=== PATIENT | male | born 1985 ===

== ENCOUNTER 2019-05-11 06:59 | Inpatient (IN) | payer OTHER ==
[~2019-05-11] VITALS: Ht 180.3 cm; Wt 95.3 kg
[~2019-05-11 06:59] MED LIST: Acetaminophen (Non formulary) 100 ML IV ONE; Atropine Sulfate 0.4mg/ml inj IVP PRN; Bacitracin 50000 Units Vial ONE; DiphenhydrAMINE 50mg/ml Inj IVP PRN; Gelfoam Size TOPIC ONE; HYDROcodone/Acetamin 5/325 tab ORAL PRN; HYDROcodone/Acetamin 7.5/325 tab ORAL PRN; Heparin 5000 units/ml inj ONE; Hydromorphone 0.5mg/0.5ml inj IVP PRN; Ketorolac 30mg Inj IV PRN; LORazepam Inj 2mg/ml 1ml IV PRN; LR 1000ml 1,000 ML IVLG SCH; Labetalol 5mg/ml 20ml vial IV PRN; Lidocaine 1% MPF 10mg/ml 5ml ONE; Lidocaine 1% Plain 30 ml INJ ONE; Meperidine 50mg/ml Inj(FOR RIGORS ONLY) IVP PRN; Metoclopramide 10mg/2ml Inj IVP PRN; Midazolam 2mg/2ml Inj IVP PRN; Ropivacaine 5mg/ml Vial 30ml INJ ONE; Sodium Chloride 10ml vial INJ ONE; Thrombin 5000 units TOPIC ONE; Zemuron 50mg/5ml Inj IV ONE; fentaNYL 100 mcg/2 mL IV ONE; fentaNYL 100 mcg/2 mL IV PRN; oxyCODONE HCL/Acetaminophen 5/325mg ORAL PRN
[2019-05-11] MEDS ORDERED: Dexamethasone 20mg/5ml IVP ONE (07:00)
[2019-05-11] MEDS ORDERED: ceFAZolin sod 1 GM in NS 55 ML IVPB ONE (07:00)
[2019-05-11] MEDS ORDERED: Dexamethasone 4mg/ml vial ONE (07:24)
[2019-05-11] MEDS ORDERED: Dexamethasone 20mg/5ml ONE (07:24)
[2019-05-11 07:29] VITALS: BP 149/94
--- NOTE | 2019-05-11 07:38 | Pre-Procedure Note/Attestation ---
Pre-Procedure Note/Attestation Complete Prior to Procedure Planned Procedure: not applicable Procedure Narrative: L5 S1 ALIF anterior internal fixation Indications for Procedure Pre-Operative Diagnosis: Post trauma clinical instability Attestation I attest that I discussed the nature of the procedure; its benefits; risks and complications; and alternatives (and the risks and benefits of such alternatives ), prior to the procedure, with the patient (or the patient's legal sales representative groceries). I attest that, if there was a reasonable possibility of needing a blood transfusion, the patient (or the patient's legal sales representative groceries) was given the [facility] standardized written summary, pursuant to the [place] Blood Safety Act ([place] Health and Safety Code # 1645, as amended). I attest that I re-evaluated the patient just prior to the surgery and that there has been no change in the patient's H&P, except as documented below: Angel Lock MD May 11, 2019 07:38
[2019-05-11] MEDS ORDERED: GABAPENTIN300 MG ORAL (07:39)
[2019-05-11] MEDS ORDERED: NORCO 10-325 T1 EACH ORAL (07:39)
--- NOTE | 2019-05-11 07:44 | Anethesia Preoperative Eval ---
Anesthesia Pre-op PMH/ROS General Date of Evaluation: May 11, 2019 Anesthesiologist: Sarthak ASA Score: ASA 2 Mallampati Score Class I : Soft palate, uvula, fauces, pillars visible Class II: Soft palate, uvula, fauces visible Class III: Soft palate, base of uvula visible Class IV: Only hard plate visible Mallampati Classification: Class II Surgeon: Ashvin Diagnosis: Back Pain Surgical Procedure: ALIF L5-S1 Anesthesia History: none Social History: current smoker Family History: no anesthesia problems Allergies: Coded Allergies: No Known Allergies (Unverified , 05/11/19) Medications: see eMAR Patient NPO?: Yes NPO Date: May 10, 2019 NPO Time: 1999 Past Medical History Cardiovascular: Reports: HTN Pulmonary: Reports: other - Smoker Other: obesity - BMI 31 Anesthesia Pre-op Phys. Exam Physician Exam Last Vital Signs Date Time Temp Pulse Resp B/P (MAP) Pulse Ox O2 Delivery O2 Flow Rate FiO2 05/11/19 07:29 97.3 83 18 149/94 (112) 99 05/11/19 07:22 Room Air Constitutional: NAD Neurologic: CN 2-12 intact Cardiovascular: RRR Respiratory: CTA Gastrointestinal: S/NT/ND Airway Exam Mallampati Score: Class II MO: full ROM: full Teeth: intact Anesthesia Pre-op A/P Risk Assessment & Plan Assessment: ASA 2 Plan: GA, SED, GlideScope Go Status Change Before Surgery: No Pre-Antibiotics Dru Grams Ancef IV Given Within 1 Hr of Incision: Yes Travis De León MD May 11, 2019 07:44
--- NOTE | 2019-05-11 07:44 | Immediate Post-Op Evaluation ---
Immediate Post-Op Evalulation Immediate Post-Op Evalulation Procedure: ALIF L5-S1 Date of Evaluation: May 11, 2019 Blood Products: 0 Pain Score (1-10): 2 Nausea: No Vomiting: No Complications 0 Patient Status: awake, reacts, patent, extubated, none Hydration Status: adequate Dru grams Ancef IV Given Within 1 Hr of Incision: Yes Travis De León MD May 11, 2019 07:44
[2019-05-15] VITALS (9 sets, daily range): BP systolic 115–143; BP diastolic 56–89
[2019-05-15] MEDS ORDERED: Heparin 5000 units/ml inj ONE (06:21)
[2019-05-15] MEDS ORDERED: Thrombin 5000 units TOPIC ONE (06:21)
[2019-05-15] MEDS ORDERED: Gelfoam Size TOPIC ONE (06:22)
[2019-05-15] MEDS ORDERED: Bacitracin 50000 Units Vial ONE (06:22)
[2019-05-15] MEDS ORDERED: Ropivacaine 5mg/ml Vial 30ml INJ ONE (06:22)
[2019-05-15] MEDS ORDERED: Zemuron 50mg/5ml Inj IV ONE (06:28)
[2019-05-15] MEDS ORDERED: LR 1000ml 1,000 ML IVLG SCH (06:36)
--- NOTE | 2019-05-15 06:37 | Anethesia Preoperative Eval ---
Anesthesia Pre-op PMH/ROS General Date of Evaluation: May 15, 2019 Time of Evaluation: 06:49 Anesthesiologist: Sarthak ASA Score: ASA 2 Mallampati Score Class I : Soft palate, uvula, fauces, pillars visible Class II: Soft palate, uvula, fauces visible Class III: Soft palate, base of uvula visible Class IV: Only hard plate visible Mallampati Classification: Class II Surgeon: Ashvin Diagnosis: Back Pain Surgical Procedure: ALIF L5-S1 Anesthesia History: none Social History: current smoker Family History: no anesthesia problems Allergies: Coded Allergies: No Known Allergies (Unverified , 05/11/19) Medications: see eMAR Patient NPO?: Yes NPO Date: May 14, 2019 NPO Time: 1999 Past Medical History Cardiovascular: Reports: HTN Other: obesity - BMI 31 PSxH Narrative: Testicular SX Anesthesia Pre-op Phys. Exam Physician Exam Last Vital Signs Date Time Temp Pulse Resp B/P (MAP) Pulse Ox O2 Delivery O2 Flow Rate FiO2 05/15/19 05:40 Room Air 05/11/19 07:29 97.3 83 18 149/94 (112) 99 Constitutional: NAD Neurologic: CN 2-12 intact Cardiovascular: RRR Respiratory: CTA Gastrointestinal: S/NT/ND Airway Exam Mallampati Score: Class II MO: full ROM: full Teeth: intact Anesthesia Pre-op A/P Risk Assessment & Plan Assessment: ASA 2 Plan: GA, SED, GlideScope Go Status Change Before Surgery: Yes Pre-Antibiotics Dru Grams Ancef IV Given Within 1 Hr of Incision: Yes Time Given: 07:06 Travis De León MD May 15, 2019 06:37
--- NOTE | 2019-05-15 06:39 | Pre-Procedure Note/Attestation ---
Pre-Procedure Note/Attestation Complete Prior to Procedure Planned Procedure: not applicable Procedure Narrative: ALIF L5-S1. Anterior internal plate fixation L5, S1. Indications for Procedure Pre-Operative Diagnosis: Post trauma clinical instability Attestation I attest that I discussed the nature of the procedure; its benefits; risks and complications; and alternatives (and the risks and benefits of such alternatives ), prior to the procedure, with the patient (or the patient's legal client relations representative). I attest that, if there was a reasonable possibility of needing a blood transfusion, the patient (or the patient's legal client relations representative) was given the [place] [facility] standardized written summary, pursuant to the [place] Blood Safety Act ([place] Health and Safety Code # 1645, as amended). I attest that I re-evaluated the patient just prior to the surgery and that there has been no change in the patient's H&P, except as documented below: Angel Lock MD May 15, 2019 06:39
[2019-05-15] MEDS ORDERED: Lidocaine 1% MPF 10mg/ml 5ml ONE (06:40)
[2019-05-15] MEDS ORDERED: Sodium Chloride 10ml vial INJ ONE (06:40)
[2019-05-15] MEDS ORDERED: Dexamethasone 4mg/ml vial ONE (06:40)
[2019-05-15] MEDS ORDERED: oxyCODONE HCL/Acetaminophen 5/325mg ORAL PRN (06:45)
[2019-05-15] MEDS ORDERED: Atropine Sulfate 0.4mg/ml inj IVP PRN (06:45)
[2019-05-15] MEDS ORDERED: Metoclopramide 10mg/2ml Inj IVP PRN (06:45)
[2019-05-15] MEDS ORDERED: DiphenhydrAMINE 50mg/ml Inj IVP PRN (06:45)
[2019-05-15] MEDS ORDERED: Midazolam 2mg/2ml Inj IVP PRN (06:45)
[2019-05-15] MEDS ORDERED: Labetalol 5mg/ml 20ml vial IV PRN (06:45)
[2019-05-15] MEDS ORDERED: Acetaminophen (Non formulary) 100 ML IV ONE (06:45)
[2019-05-15] MEDS ORDERED: HYDROcodone/Acetamin 7.5/325 tab ORAL PRN (06:45)
[2019-05-15] MEDS ORDERED: fentaNYL 100 mcg/2 mL IV PRN (06:45)
[2019-05-15] MEDS ORDERED: LORazepam Inj 2mg/ml 1ml IV PRN (06:45)
[2019-05-15] MEDS ORDERED: Hydromorphone 0.5mg/0.5ml inj IVP PRN (06:45)
[2019-05-15] MEDS ORDERED: Meperidine 50mg/ml Inj(FOR RIGORS ONLY) IVP PRN (06:45)
[2019-05-15] MEDS ORDERED: Ketorolac 30mg Inj IV PRN ×2 (06:45)
[2019-05-15] MEDS ORDERED: HYDROcodone/Acetamin 5/325 tab ORAL PRN (06:45)
[2019-05-15] MEDS ORDERED: Lidocaine 1% Plain 30 ml INJ ONE (06:48)
[2019-05-15] MEDS ORDERED: Propofol 1,000mg/ 100ml btl IV ONE (07:00)
[2019-05-15] MEDS ORDERED: Sterile Water Irrig 1000ml IRRIG ONE (07:00)
[2019-05-15] MEDS ORDERED: ceFAZolin sod 1 GM in NS 55 ML IVPB ONE (07:00)
[2019-05-15] MEDS ORDERED: LR 1000ml ONE (07:00)
[2019-05-15] MEDS ORDERED: NS Irrig 1000ml ONE (07:00)
[2019-05-15] MEDS ORDERED: Dexamethasone 20mg/5ml IVP ONE (07:00)
[2019-05-15] MEDS ORDERED: LORazepam 1mg tab ORAL PRN (07:15)
[2019-05-15] MEDS ORDERED: Chloraseptic Spray 20mL Bottle ORAL PRN (07:15)
[2019-05-15] MEDS ORDERED: HYDROmorphone 1mg/ml Carpuject SUBQ PRN (07:15)
--- NOTE | 2019-05-15 07:25 | Immediate Post-Op Evaluation ---
Immediate Post-Op Evalulation Immediate Post-Op Evalulation Procedure: ALIF L5-S1 Date of Evaluation: May 15, 2019 Time of Evaluation: 09:09 IV Fluids: 1000 LR Blood Products: 0 Estimated Blood Loss: 25 Urinary Output: 0 Blood Pressure Systolic: 118 Blood Pressure Diastolic: 73 Pulse Rate: 84 Respiratory Rate: 16 O2 Sat by Pulse Oximetry: 100 Temperature (Fahrenheit): 97.2 Pain Score (1-10): 3 Nausea: No Vomiting: No Complications 0 Patient Status: awake, reacts, patent, extubated, none Hydration Status: adequate Dru Grams Ancef IV Given Within 1 Hr of Incision: Yes Time Given: 07:06 Travis De León MD May 15, 2019 07:25
--- NOTE | 2019-05-15 07:37 | 48 Hour Post Anesthesia Eval ---
Post Anesthesia Evaluation Procedure: ALIF L5-S1 Date of Evaluation: May 15, 2019 Time of Evaluation: 11:23 Blood Pressure Systolic: 134 0: 72 Pulse Rate: 73 Respiratory Rate: 18 Temperature (Fahrenheit): 98.2 O2 Sat by Pulse Oximetry: 98 Airway: patent Nausea: No Vomiting: No Pain Intensity: 3 Hydration Status: adequate Cardiopulmonary Status: Stable Mental Status/LOC: patient returned to baseline Follow-up Care/Observations: 0 Post-Anesthesia Complications: 0 Follow-up care needed: N/A Travis De León MD May 15, 2019 07:37
[2019-05-15] MEDS ORDERED: D5 1/2NS 1,000 ML IV SCH (08:34)
--- NOTE | 2019-05-15 08:34 | Brief Operative Note ---
Immediate Post Operative Note Operative Note Pre-op Diagnosis: Post trauma clinical instability Procedure: ALIF L5-S1 Anterior Plate L5, S1 Post-op Diagnosis: same as pre-op Findings: consistent w/pre-op dx studies Surgeon: Ashvin Ph.D., M.D. Additional Surgeons: Daniel MICHELE Anesthesiologist: Sarthak MICHELE Anesthesia: general Specimen: yes Complications: none Condition: stable Fluids: anesthesia Estimated Blood Loss: minimal Drains: none Implant(s) used?: Yes Angel Lock MD May 15, 2019 08:34
--- NOTE | 2019-05-15 10:12 | NUR ---
NURSE NOTES: Patient arrived on unit via hospital bed. Stable. AOx4. Denies pain or SOB at this time. Surgical dressing is clean, dry, and intact. Patient oriented to room, unit, and call light. Patient encouraged to use call light for assistance, verbalized understanding. Patient in bed in locked and lowest position with call light within reach. Will continue to monitor.
[2019-05-15] MEDS ORDERED: Tamsulosin 0.4mg cap ORAL SCH (10:30)
--- NOTE | 2019-05-15 10:30 | Operative Note - Dictated ---
DATE OF OPERATION: 05/15/2019 SURGEON: Angel Lock PhD. M.D. ADDITIONAL SURGEON: Vascular Surgery, Dr. Sanchez. ANESTHESIA: Dr. De León, general with intubation. ESTIMATED BLOOD LOSS: Less than 50 mL. COMPLICATIONS: None. POSTOPERATIVE CONDITION: Good/stable. FLUIDS: Per anesthesia. PREOPEARTIVE DIAGNOSIS: Posttraumatic L5-S1 pain. POSTOPERATIVE DIAGNOSIS: Posttraumatic L5-S1 pain. OPERATIVE PROCEDURES: 1. Anterior L5-S1 lumbar interbody fusion, implantation of biomechanical device containing bio-active material. 2. Anterior internal plate fixation. 3. SSEP/EMG monitoring. 4. High-powered magnification dissection. Please see separate report Dr. Sanchez, for anterior exposure and closure. Identification under sterile techniques with a spinal needle placed midline in the L5-S1 disc was undertaken with fluoroscopic guidance in the AP and lateral planes. Position marked. Needle removed. Wound irrigated with antibiotic-containing saline. Annulotomy followed with diskectomy posterior longitudinal ligament. Denuding of the cartilaginous endplates from the inferior L5 and superior S1 vertebral bodies. SSEP/EMG monitoring normal at all times. Trial utilization for determination of the correct implant. After termination with fluoroscopic guidance, implant was appropriately packed with bio-active material, implant tamped into position under direct observation. Fluoroscopic guidance demonstrated the correct alignment and positioning. Internal flange system deployed per manufacture's criteria FDA approved. Anterior internal plate fixation with 28 mm screws in a compressive divergent manner with screws locked into position. Excellent alignment in AP and lateral planes. All monitoring stable. Wound irrigated with antibiotic-containing saline. Please see closure, Dr. Sanchez. Angel Lock M.D. DR: ZULY JOB#: [id number] CC:
[2019-05-15] MEDS: Morphine Sulfate 4mg/ml Inj (IV USE ONLY) IVP PRN ×3 (11:40→18:15)
[2019-05-15] MEDS: D5 1/2NS 1,000 ML IV SCH ×2 (11:46→19:20)
[2019-05-15] MEDS ORDERED: Naloxone 0.4mg/ml Inj IVP PRN (12:00)
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
--- NOTE | 2019-05-15 12:19 | Diagnostic Imaging Report ---
INDICATION: Pain, intraoperative TECHNIQUE: Intraoperative imaging Fluoroscopy time: 9.9 seconds Total dose: [id number] mGym2 Total number of images: 3 COMPARISON: None FINDINGS: Intraoperative images demonstrate surgical tool projected at the anterior aspect of what is presumably the L5-S1 disc. Subsequent images demonstrate anterior fusion hardware placement at L5-S1 IMPRESSION: Intraoperative imaging, as described
--- NOTE | 2019-05-15 12:30 | Operative Note - Dictated ---
DATE OF OPERATION: 05/15/2019 VASCULAR SURGEON: Rasta Sanchez M.D. SPINE SURGEON: Angel Lock M.D. PREOPERATIVE DIAGNOSIS: Lumbar pain. POSTOPERATIVE DIAGNOSIS: Lumbar pain. PROCEDURE: Anterior retroperitoneal exposure of L5-S1 vertebral interspace, right retroperitoneal approach. INDICATIONS: This is a very pleasant gentleman, who is seen in my office prior to surgery. He was scheduled for anterior spine surgery L5-S1. He had no prior anterior spine surgery. No history of deep venous thrombosis or bleeding complications were described. He has been made aware of the risks of vascular surgery. Positive vascular injury with need for blood transfusion, deep venous thrombosis were all discussed. DESCRIPTION OF FINDINGS: A low vertical midline incision was used. The right retroperitoneal approach was used. There was no peritoneal or ureteral violation. There was no vascular injury. BLOOD LOSS: Less than 50 mL. COMPLICATIONS: None. DESCRIPTION OF PROCEDURE: The patient was taken to the operating room. General anesthesia was used. IV antibiotics were given. The patient's abdomen was prepped and draped. Appropriate time-out for procedure taken. A low vertical midline incision was made infraumbilically. The anterior fascia was incised longitudinally in the midline. A plane was identified posterior to the right rectus abdominis developed posterolaterally to the patient's right. The retroperitoneal space was entered below the arcuate line. The peritoneum and ureter were mobilized towards the patient's left exposing the right common iliac artery and vein. Dissection was carried superiorly along the medial border of the right common iliac artery and vein. The anterior surface of L5-S1 was palpated. The peritoneum and ureter were mobilized towards the patient's left exposing the anterior surface of L5-S1. The Omni retractor blade was set in place. Fluoroscopy was then used to confirm the appropriate level. An instrumentation was performed at L5-S1 dictated separately. On completion, the retractors were removed. The peritoneum and ureter were intact. Iliac vessels were intact. Anterior fascia was closed using #1 PDS in a running fashion and the skin and subcutaneous tissue were closed with 3-0 Vicryl and 4-0 Monocryl running subcuticular closure technique. Estimated blood loss less than 50 mL. Complications were none. Rasta Sanchez M.D. DR: MOISÉS JOB#: [id number] CC: Ted Cruz M.D. ; FAX#: [phone]
[2019-05-15] MEDS: ceFAZolin sod 1 GM in D5W 55 ML IV SCH ×2 (15:58→23:37)
--- NOTE | 2019-05-15 16:43 | NUR ---
CASE MANAGEMENT:REVIEW 33 YR OLD MALE HERE FOR ELECTIVE SURGERY SI: LUMBAR PAIN 97.3 83 18 149/94 99% ON RA IS: TO SURGERY FOR: Anterior retroperitoneal exposure of L5-S1 vertebral interspace, right retroperitoneal approach. IV ANCEF Q8HRS IVF@150/HR MARINOL PO Q12 IV MORPHINE Q3HRS PRN : TO MED/SURG 3 EAST INTERQUAL CRITERIA MET
--- NOTE | 2019-05-15 17:00 | NUR ---
NURSE NOTES: Patient passed gas. Dr Chavez aware, will continue to monitor.
[2019-05-15] MEDS: Dronabinol 2.5mg Cap ORAL SCH (18:15)
--- NOTE | 2019-05-15 18:30 | NUR ---
NURSE NOTES: Dr. Chavez made aware that patient c/o pain in right leg, no new orders at this time. Will continue to monitor.
--- NOTE | 2019-05-15 18:40 | Cardiology Progress Note ---
Assessment/Plan Assessment/Plan [id number] note dicated Objective Last 24 Hour Vital Signs Date Time Temp Pulse Resp B/P (MAP) Pulse Ox O2 Delivery O2 Flow Rate FiO2 05/15/19 10:00 97.9 05/15/19 09:55 97.9 88 18 125/78 100 Nasal Cannula 3 05/15/19 09:45 90 18 128/80 100 Nasal Cannula 3 05/15/19 09:33 87 18 118/80 100 Nasal Cannula 3 05/15/19 09:25 86 15 116/73 100 Simple Mask 6 05/15/19 09:15 74 18 115/72 100 Simple Mask 6 05/15/19 09:08 73 18 118/66 100 Simple Mask 6 05/15/19 09:03 76 15 115/56 100 Simple Mask 6 05/15/19 08:58 97.2 88 16 118/73 100 Simple Mask 6 05/15/19 08:58 73 18 98 05/15/19 08:57 84 16 100 05/15/19 05:40 Room Air Dandre Banegas MD May 15, 2019 18:40
--- NOTE | 2019-05-15 19:34 | NUR ---
HAND-OFF: Report given to Maryana KIMBLE. Patient is stable.
--- NOTE | 2019-05-15 19:35 | NUR ---
NURSE NOTES: Received report & pt from SHYANNE Thornton. Pt lying in bed, a&ox4, in room air. No s/s of acute distress & c/o 5/10 pain at this time. Will give PRN pain med when due. IV site intact with IVF running as ordered. Surgical dressing C/D/I. Bed in lowest position, call light within reach. Will continue to monitor.
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
[2019-05-16] VITALS: BP 127/80
[2019-05-16] MEDS: D5 1/2NS 1,000 ML IV SCH (01:58)
[2019-05-16 03:57] VITALS: BP 117/73
--- NOTE | 2019-05-16 05:00 | NUR ---
NURSE NOTES: Pt's pain level 5/10; Offered pt pain med but pt states, "maybe a little bit later". Told pt to call RN once ready for pain med.
--- NOTE | 2019-05-16 06:15 | NUR ---
NURSE NOTES: Pt ambulated with assist around the hallway x 3 laps. Steady gait. In no acute distress. Pt would like to have his Morphine med later.
[2019-05-16] MEDS: Dronabinol 2.5mg Cap ORAL SCH ×2 (06:16→17:51)
[2019-05-16] MEDS: ceFAZolin sod 1 GM in D5W 55 ML IV SCH (06:32)
--- NOTE | 2019-05-16 07:30 | NUR ---
HAND-OFF: Report given to SHYANNE Green. Pt in stable condition. Rounds done.
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
[2019-05-16 08:00] VITALS: BP 129/90
[2019-05-16] MEDS: HYDROcodone/Acetamin 10/325 tab ORAL PRN ×3 (08:44→23:53)
[2019-05-16] MEDS ORDERED: D5 1/2NS 1,000 ML IV SCH (09:00)
--- NOTE | 2019-05-16 09:44 | Progress Note ---
DATE: 05/16/2019 ACUTE PAIN MANAGEMENT PHYSICIAN PROGRESS NOTE MEDICATIONS: Medication administration record reviewed. Medications include Marinol, Pepcid, Ancef, Benadryl, morphine, Zofran, Narcan, IV fluids, Tylenol, Chloraseptic spray, Soma, Ativan, Fioricet, Catapres, Dilaudid, [place], Mylanta. LABORATORY STUDIES: No interval laboratory studies. VITAL SIGNS: Afebrile, pulse 81, respirations 18, oxygen saturation 98% on room air, blood pressure 117/73. I spent over 60 minutes in consultation today. I saw the patient at the bedside after discussing with the nurse, Maryana. I also spoke with the surgeon, Dr. Angel Lock. The patient has been doing quite well. He has ambulated around greater than 200 feet in the hallways several times. He states that his left lower extremity pains had resolved. He does still have some right lower extremity pains and incisional pain. The patient has been tolerating the IV morphine for primary analgesia along with the scheduled Marinol. He shows no signs of oversedation. He has no nausea symptoms. He states that he has been passing plenty of flatus. Dr. Lock has been made aware of the patient's flatus and Dr. Lock will advance his diet when Dr. Lock feels it is appropriate. The patient has been using his incentive spirometer with good effort. The patient is voiding urine well. The patient has normal vital signs. Overall, the patient is progressing extremely well after his lumbar spine fusion surgery. We will continue to advance his physical therapy as tolerated. The patient has tolerated [place] in the past. We will transition him on to oral [place] once his diet is advanced. I also left a refill prescription for [place] #60 tablets for outpatient usage, the patient states that he has a prescription received from Dr. Lock two weeks ago, which he was starting to empty, since his surgery was delayed one week. Gabriel Chavez M.D. DR: HERBIE JOB#: [id number] CC:
[2019-05-16 12:00] VITALS: BP 133/78
--- NOTE | 2019-05-16 15:47 | NUR ---
PT Note PT valentin completed, treatment initiated. Patient needs PT to improve his safety in mobility and to educate/instruct on the importance to performing log rolls and to maintain the neutral position of the spine during transfer/mobility tasks to prevent injury to L/s spine. Addendum: 05/16/19 at 1548 by VILMA OCONNOR PT Amended: Links added.
[2019-05-16 16:00] VITALS: BP 127/78
--- NOTE | 2019-05-16 17:14 | Cardiology Progress Note ---
Assessment/Plan Assessment/Plan post spinal surgery, stable, continue physical therapy Subjective Subjective the patient is resting in his bed he has mild abdominal discomfort Objective Last 24 Hour Vital Signs Date Time Temp Pulse Resp B/P (MAP) Pulse Ox O2 Delivery O2 Flow Rate FiO2 05/16/19 16:00 98.1 81 19 127/78 (94) 97 05/16/19 12:00 98.3 82 18 133/78 (96) 97 05/16/19 09:00 Room Air 05/16/19 08:00 98.4 67 18 129/90 (103) 99 05/16/19 03:57 98.1 81 18 117/73 (88) 98 05/16/19 00:00 98.1 80 16 127/80 (96) 96 05/15/19 22:05 97.9 83 19 143/89 (107) 99 05/15/19 21:00 Room Air General Appearance: no apparent distress EENT: PERRL/EOMI Neck: non-tender Rhythm: NSR Cardiovascular: regular rhythm Respiratory/Chest: normal breath sounds Abdomen: tender Intake and Output 05/15/19 05/16/19 18:59 06:59 Intake Total 1100 ml 1555 ml Output Total 625 ml 700 ml Balance 475 ml 855 ml Intake IV Total 1100 ml 1555 ml Output Urine Total 600 ml 700 ml Estimated Blood Loss 25 ml # Voids 3 Honey Owens MD May 16, 2019 17:14
[2019-05-16] MEDS ORDERED: D5 1/2NS 1000ml IV ONE (17:41)
--- NOTE | 2019-05-16 19:45 | NUR ---
END OF SHIFT NOTE: Pt. AOx4. Pain medication given per order. Ambulated 4x each time 3 rounds around the dum[place]. Tolerated well. Diet advanced to regular. No N/V, tolerated well. Surgical site, intact. No BM.
--- NOTE | 2019-05-16 19:46 | NUR ---
HAND-OFF: Report given to Gita. PtFrankie in stable condition. Plan of care endorsed.
[2019-05-16 20:00] VITALS: BP 131/76
[2019-05-17] VITALS: BP 138/88
--- NOTE | 2019-05-17 03:50 | NUR ---
NURSE NOTE: Pt is A/Ox4 with stable VS. Physical assessment completed and orders reviewed. Pt had concerns of not passing stool early in the shift but did have a BM x1. Pt ambulated in the hallways. PRN pain meds administered per patient request. Pt is inquisitive about discharge. Call tsang remains within reach. Will continue to follow plan of care.
[2019-05-17 04:25] VITALS: BP 123/83
[2019-05-17] MEDS: Dronabinol 2.5mg Cap ORAL SCH (05:57)
--- NOTE | 2019-05-17 07:25 | NUR ---
HAND-OFF: Report given to Clint. Pt is stable, endorsed plan of care.
[2019-05-17 08:00] VITALS: BP 138/89
--- NOTE | 2019-05-17 08:00 | NUR ---
NURSE NOTES: Received report from Gita KIMBLE, pt in seating in bed eating breakfast with no signs of distress or other issues at this time. surgical dressing dry and intact. pt is able to ambulate around the room with steady gait. pt had a BM last night. genie light within reach. bed in lowest position. side rale sup x2. I will f/u as needed.
[2019-05-17] MEDS: HYDROcodone/Acetamin 10/325 tab ORAL PRN (08:13)
--- NOTE | 2019-05-17 10:01 | Cardiology Progress Note ---
Assessment/Plan Assessment/Plan post spinal surgery, stable, continue physical therapy Subjective Subjective feels better, has BM, but still needs pain medications for the pain radiating to his leg Objective Last 24 Hour Vital Signs Date Time Temp Pulse Resp B/P (MAP) Pulse Ox O2 Delivery O2 Flow Rate FiO2 05/17/19 08:43 98.1 05/17/19 08:00 98.2 94 20 138/89 (105) 99 05/17/19 04:25 98.1 64 18 123/83 (96) 99 05/17/19 00:00 99.1 85 18 138/88 (105) 99 05/16/19 21:00 Room Air 05/16/19 20:00 97.9 90 18 131/76 (94) 98 05/16/19 16:00 98.1 81 19 127/78 (94) 97 05/16/19 12:00 98.3 82 18 133/78 (96) 97 General Appearance: no apparent distress EENT: PERRL/EOMI Neck: supple Rhythm: NSR Cardiovascular: normal rate Respiratory/Chest: lungs clear Abdomen: tender - mild Extremities: normal range of motion Intake and Output 05/16/19 05/17/19 19:00 07:00 Intake Total 800 ml 1200 ml Output Total 200 ml Balance 800 ml 1000 ml Intake Oral 1200 ml IV Total 800 ml Output Urine Total 200 ml # Voids 2 # Bowel Movements 1 Microbiology Date/Time Source Procedure Growth Status 05/15/19 06:00 Nasal Nares MRSA Culture - Final NO METHICILLIN RESISTANT STAPH AUREUS... Complete Honey Owens MD May 17, 2019 10:01
--- NOTE | 2019-05-17 11:00 | Progress Note ---
DATE: 05/17/2019 ACUTE PAIN MANAGEMENT PHYSICIAN PROGRESS NOTE MEDICATIONS: Medication administration record reviewed. Medications include Pepcid, Marinol, Chloraseptic spray, Soma, Benadryl, Ativan, Fioricet, Catapres, Dilaudid, [place], morphine, Mylanta, Zofran, Narcan, Tylenol. LABORATORY STUDIES: No interval laboratory studies. VITAL SIGNS: Afebrile, pulse 64, respirations 18, blood pressure 123/83, oxygen saturation 99% on room air. I spent over 60 minutes in consultation today. I saw the patient at bedside with the nurse, Clint. I discussed the case with the surgeon, Dr. Lock. The patient has voided urine without difficulty and had a bowel movement overnight. He has been tolerating advancing diet after his ALIF procedure. He is ambulating greater than 300 feet and moves in and out of bed with relative ease. He still is having some right lower extremity radicular symptoms. I believe these symptoms are moderated compared to preop. I did continue to encourage the patient to be patient for postoperative swelling to improve these symptoms. The patient will follow up with Dr. Lock in the outpatient surgical clinic within the next two weeks. I did leave a prescription for [place] for outpatient usage. The patient is breathing comfortably on room air. I did encourage continued incentive spirometer usage, and the patient will take that device home with him. He lives at home with his father, and the patient does have a clamp truck driver arranged for transportation to home. The wound dressings are clean and dry. With normal vital signs and evidence for protestant of bowel function with his bowel movement overnight, I see no contraindication for discharge to home later today. We will await Dr. Lock to provide the final discharge order. Ted Correa JOB#: [id number] CC:
[2019-05-17 12:00] VITALS: BP 129/85
[2019-05-17] MEDS ORDERED: NORCO 10-325 T1 EACH ORAL (12:56)
--- NOTE | 2019-05-17 15:08 | NUR ---
NURSE NOTES: Received order to d/c home. Discharge instruction and belongings given to patient. also given RX for [place] #60. pt stated that will go to his regular pharmacy to fill it out. RN called pt's light truck driver at [phone] s/w Bekah, she will arrange apple picking supervisor at 15:00. pt left the floor with no signs of distress or other issues at this time. I will f/u as needed.
--- NOTE | 2019-05-18 14:47 | Discharge Summary ---
Discharge Summary Hospital Course Date of Admission May 15, 2019 at 04:57 Date of Discharge May 17, 2019 at 14:20 Admitting Diagnosis posttraumatic ( s/p fall) pain L5 S1 Reason for Hospitalization: elective surgery -ALIF wutg allograft HPI Valdo Hammonds Jr is a 33 year old male , who was admitted on May 15, 2019 at 04:57 for Lumbar pain and Instability due to fall. Patient was admitted for elective surgery Consultations Dr Banegas -cardio/IM Procedures s/p 05/15/[address] Lock 1. Anterior L5-S1 lumbar interbody fusion, implantation of biomechanical device containing bio-active material. 2. Anterior internal plate fixation. 3. SSEP/EMG monitoring. 4. High-powered magnification dissection s/p 05/15/[address] Sanchez ( vascular approach) Anterior retroperitoneal exposure of L5-S1 vertebral interspace, right retroperitoneal approach. Hospital Course status post surgery course of recovery uneventful initially IV fluids s/p perioperative antibiotics neurovascular status closely monitored, stable incision clean , dry, and intact pain management addressed pain specialist followed; pain controlled hemodynamically stable ambulated with PT fall precautions maintained; safe for ambulation DVT prophylaxis provided use of incentive spirometry was encouraged while in the bed patient initially was kept n.p.o. until bowel function returned then started on liquid diet and was advanced as tolerated patient was able to tolerate diet, IV fluids were discontinued GI prophylaxis provided antiemetics were on board as needed voided freely bowel regimen instituted patient was stable for discharge discharge instructions provided follow up with surgeon as outpatient in clinic as advised by surgeon. FINAL DIAGNOSIS: s/p fall Posttraumatic L5-S1 pain s/p ALIF L5-S1 Discharge Medications Continued Medications: Hydrocodone Bit/Acetaminophen 10-325* ([place] 10-325*) 1 Each Tablet 1 TAB ORAL Q4H PRN for For Pain, #60 TAB 0 Refills (This prescription has been renewed) PRN PAIN Discharge Condition Upon Discharge: stable Discharge Disposition Patient was discharged to Home () Discharge Instructions Discharge Instructions Special Instructions I have been assigned to complete a D/C Summary on this account. I was not involved in the patient management Mariah Kiser NP May 18, 2019 14:46
== END 2019-05-17 14:20 | disposition home or self-care (01) | DRG 460 ==
LOC: SDSOVERFLO 06:59 → UNDOADMIN 06:59 → SDSOVERFLO 05-15 04:57 → 3E 05-15 10:00
PROC: 0SB40ZZ Excision of Lumbosacral Disc, Open Approach (ICD-10-PCS; principal; 2019-05-15 06:45)
PROC: 0SG30A0 Fusion of Lumbosacral Joint with Interbody Fusion Device, Anterior Approach, Anterior Column, Open Approach (ICD-10-PCS; principal; 2019-05-15 06:45)
DX: M53.2X7 Spinal instabilities, lumbosacral region (principal); M54.5 Low back pain; W19.XXXS Unspecified fall, sequela; G89.18 Other acute postprocedural pain
CPT/HCPCS: 36415; 72020; 76000; 86850; 86900; 86901; 87081; 94003; 94150; J2405